=== PATIENT | male | born 1935 | race Caucasian/White ===

== ENCOUNTER 2017-02-27 23:17 | Observation (INO) | payer OTHER ==
[~2017-02-27] VITALS: Ht 162.6 cm; Wt 83.4 kg
[~2017-02-27 23:17] MED LIST: BTP80 PO; MOEX15TA PO; WARF-280 PO
[2017-02-28] VITALS (10 sets, daily range): BP systolic 102–121; BP diastolic 59–75; PULSE 62–76; TEMP 36.7–36.9; O2SAT 93–96; Ht 162.6 cm; Wt 83.4 kg
--- NOTE | 2017-02-28 00:07 | EMERGENCY ROOM VISIT NOTE ---
History Report prepared by Danny: Axel Liu Under the Supervision of: Dr. Purvi De Santiago D.O. First contact with patient: 23:33 Chief Complaint: TACHYCARDIA Stated Complaint: HEART RACING History of Present Illness The patient is an 81 year old male who presents to the Emergency Room with complaints of a rapid heart beat that began at roughly 2300 this evening, 1 hour prior to arrival. The patient states that he suddenly became cold and diaphoretic as well when his tachycardia began. The patient's also notes that he was not behaving normally and seemed as though he was becoming increasingly weak. He thought that his symptoms could be secondary to eating two "hot sausage" sandwiches for dinner at 1700. He denies experiencing any nausea. He does have a history of atrial fibrillation and currently has a bladder catheter placed due to a complete stone blockage. He is on Coumadin. Source of History: patient, spouse/significant other Onset: 1 hour [employer] Position: chest (Cardiac) Quality: other (Rapid Heart rate) Associated Symptoms: + chills, + diaphoresis, + weakness, No nausea Review of Systems See HPI for pertinent positives & negatives. A total of 10 systems reviewed and were otherwise negative. Past Medical & Surgical Medical Problems: (1) Atrial fibrillation (2) BPH (benign prostatic hypertrophy) (3) HTN (hypertension) (4) Lightheadedness (5) Subdural hemorrhage Family History Patient reports no known family medical history. Social History Smoking Status: Never Smoker Alcohol Use: occasionally Marital Status: Housing Status: lives with family Occupation Status: retired Current/Historical Medications Scheduled Lisinopril (Zestril), 5 MG PO BID Sotalol HCl (Sotalol HCl), 40 MG PO BID Warfarin Sodium (Warfarin Sodium), 2.5 MG PO 5XWK Warfarin Sodium (Warfarin Sodium), 1.25 MG PO 2XWK Allergies Coded Allergies: Phenytoin (Verified Allergy, Mild, ., 04/19/14) Sulfamethoxazole w/Trimethoprim (Verified Allergy, Mild, ., 04/19/14) Physical Exam Vital Signs Date Time Temp Pulse Resp B/P (MAP) Pulse Ox O2 Delivery O2 Flow Rate FiO2 02/28/17 02:06 79 23 96 02/28/17 02:01 126/71 02/28/17 01:36 80 20 94 02/28/17 01:31 111/60 02/28/17 01:06 83 20 90 02/28/17 01:01 115/62 02/28/17 00:52 86 17 90 02/28/17 00:31 130/62 02/28/17 00:22 88 91 02/28/17 00:17 91 14 94 02/28/17 00:01 143/81 02/27/17 23:51 93 Room Air 02/27/17 23:49 138/74 02/27/17 23:47 92 92 02/27/17 23:40 93 Room Air 02/27/17 23:40 90 02/27/17 23:37 139/73 02/27/17 23:28 37.2 92 19 145/75 92 Room Air Physical Exam HEENT: Head - normocephalic and atraumatic Pupils are equal, round, and reactive to light. Extraocular eye muscles are intact, and sclera are anicteric. Nose - moist nasal mucosa without discharge. Mouth - moist buccal mucosa. Oropharynx is nonerythematous and there is no tonsillar exudate or edema noted. Neck: Supple; no JVD, nuchal rigidity, cervical lymphadenopathy. Heart: Regular rate with Irregular rhythm. There is a normal S1 and S2 with no murmurs, clicks, or gallops appreciated. Lungs: Clear to auscultation bilaterally with no wheezes, rales, or rhonchi. Abdomen: Soft, nondistended, with good bowel sounds. There is a suprapubic catheter in place, no infection surrounding. There are no palpable pulsatile masses or hepatosplenomegaly. There is no guarding, rigidity, or rebound noted. Extremities: No evidence of cyanosis, clubbing, or edema. There are easily palpable peripheral pulses. Skin: Skin is hot to the touch and dry with good turgor. There is small vesicles noted in the LLQ of the abdomen. No significant surrounding erythema or warmth, no obvious cellulitis. Medical Decision & Procedures ER Provider Diagnostic Interpretation: Radiology results as stated below per my review: CHEST X-RAY PORTABLE: Chest X-ray shows borderline cardiomegaly, no pulmonary infiltrate or pleural effusion. Laboratory Results 02/27/17 23:56 Red Blood Count 4.32, Mean Corpuscular Volume 93.3, Mean Corpuscular Hemoglobin 31.9, Mean Corpuscular Hemoglobin Concent 34.2, Mean Platelet Volume 10.1, Neutrophils (%) (Auto) 82.5, Lymphocytes (%) (Auto) 7.4, Monocytes (%) (Auto) 9.2, Eosinophils (%) (Auto) 0.5, Basophils (%) (Auto) 0.1, Neutrophils # (Auto) 15.94, Lymphocytes # (Auto) 1.42, Monocytes # (Auto) 1.78, Eosinophils # (Auto) 0.09, Basophils # (Auto) 0.02 02/27/17 23:56 Test 02/27/17 23:45 02/27/17 23:56 02/28/17 00:10 Urine Color YELLOW Urine Appearance TURBID (CLEAR) Urine pH 5.5 (4.5-7.5) Urine Specific [place] 1.010 (1.000-1.030) Urine Protein NEG (NEG) Urine Glucose (UA) NEG (NEG) Urine Ketones NEG (NEG) Urine Occult Blood 2+ (NEG) Urine Nitrite POS (NEG) Urine Bilirubin NEG (NEG) Urine Urobilinogen NEG (NEG) Urine Leukocyte Esterase LARGE (NEG) Urine WBC (Auto) >30 /hpf (0-5) Urine RBC (Auto) 5-10 /hpf (0-4) Urine Hyaline Casts (Auto) 1-5 /lpf (0-5) Urine Epithelial Cells (Auto) 20-30 /lpf (0-5) Urine Bacteria (Auto) 4+ (NEG) Urine Yeast (Auto) (NONE PRSENT) White Blood Count 19.31 K/uL (4.8-10.8) Red Blood Count 4.32 M/uL (4.7-6.1) Hemoglobin 13.8 g/dL (14.0-18.0) Hematocrit 40.3 % (42-52) Mean Corpuscular Volume 93.3 fL (80-100) Mean Corpuscular Hemoglobin 31.9 pg (25-34) Mean Corpuscular Hemoglobin Concent 34.2 g/dl (32-36) Platelet Count 303 K/uL (130-400) Mean Platelet Volume 10.1 fL (7.4-10.4) Neutrophils (%) (Auto) 82.5 % Lymphocytes (%) (Auto) 7.4 % Monocytes (%) (Auto) 9.2 % Eosinophils (%) (Auto) 0.5 % Basophils (%) (Auto) 0.1 % Neutrophils # (Auto) 15.94 K/uL (1.4-6.5) Lymphocytes # (Auto) 1.42 K/uL (1.2-3.4) Monocytes # (Auto) 1.78 K/uL (0.11-0.59) Eosinophils # (Auto) 0.09 K/uL (0-0.5) Basophils # (Auto) 0.02 K/uL (0-0.2) RDW Standard Deviation 47.9 fL (36.4-46.3) RDW Coefficient of Variation 13.9 % (11.5-14.5) Immature Granulocyte % (Auto) 0.3 % Immature Granulocyte # (Auto) 0.06 K/uL (0.00-0.02) Prothrombin Time 22.7 SECONDS (9.0-12.0) Prothromb Time International Ratio 2.1 (0.9-1.1) Activated Partial Thromboplast Time 38.2 SECONDS (21.0-31.0) Partial Thromboplastin Ratio 1.5 Anion Gap 9.0 mmol/L (3-11) Est Creatinine Clear Calc Drug Dose 56.6 ml/min Estimated GFR () 81.4 Estimated GFR (Non- 70.3 BUN/Creatinine Ratio 12.6 (10-20) Calcium Level 8.4 mg/dl (8.5-10.1) Total Bilirubin 0.6 mg/dl (0.2-1) Aspartate Amino Transf (AST/SGOT) 20 U/L (15-37) Alanine Aminotransferase (ALT/SGPT) 23 U/L (12-78) Alkaline Phosphatase 70 U/L (45-117) Troponin I < 0.015 ng/ml (0-0.045) Total Protein 6.9 gm/dl (6.4-8.2) Albumin 3.1 gm/dl (3.4-5.0) Globulin 3.8 gm/dl (2.5-4.0) Albumin/Globulin Ratio 0.8 (0.9-2) Bedside Lactic Acid Venous 2.17 mmol/L (0.90-1.70) Laboratory results per my review. Medications Administered Medications (Trade) Dose Ordered Sig/Jhonatan Route Start Time Stop Time Status Last Admin Dose Admin Levofloxacin (Levaquin / D5W) 750 mg NOW STAT IV 02/28/17 00:54 02/28/17 00:55 DC 02/28/17 01:13 750 MG Procedure Medications Ordered: Levofloxacin ECG Indication: diaphoresis, tachycardia Rate (beats per minute): 88 Rhythm: normal sinus Findings: LBBB, PAC Comparison ECG Date: 02/16/2016 Change: LBBB is new from previous ED Course 2339: Past medical records reviewed. The patient was evaluated in room A11B. A complete history and physical exam was performed. A septic protocol was performed. A twelve-lead EKG was obtained as described above. Patient had a chest x-ray as described above. 0054: Ordered Levofloxacin 750 mg IV. The patient remains hemodynamically stable. 0156: I reevaluated the patient at this time, he is feeling better and is no longer diaphoretic. He is agreeable to an inpatient stay. 0215: I discussed the case with Dr. Soy Sorensen at this time. She will evaluate the patient for further treatment. Medical Decision The patient is an 81 year old male who presents to the Emergency Department for tachycardia and diaphoresis. Differential diagnosis includes; Sepsis, cardiac ischemia, UTI, and cardiac dysrhythmia. Laboratory Results were reviewed and show; white count of 19.3, mild anemia with a hemoglobin of 13.8, 82% neutrophils, lactic acid of 2.1, glucose of 135, LFTs and renal function are normal, INR of 2.1 Urinalysis was significantly infected, positive nitrites, large leukocyte esterase, >30 WBCs. The patient presented with an episode of diaphoresis, pallor and tachycardia. Upon presentation to the emergency department, there was a low-grade temp and the patient's skin was hot to touch. Urine from the suprapubic catheter with cloudy. Patient had moderate leukocytosis, an elevated lactic acid, and evidence of urinary tract infection. The patient has a history of Klebsiella pneumoniae and the blood. He was given IV Levaquin The patient was noted to have a new left bundle branch block in comparison to previous EKGs. A troponin was ordered and was negative. The patient had no complaints of chest discomfort. Consults Time Called: 0205 Consulting Physician: Dr. Soy Sorensen Returned Call: 0215 I discussed the case with Dr. Soy Canela Hospitalist at this time. She will evaluate the patient for further treatment. Impression Primary Impression: SIRS (systemic inflammatory response syndrome) Additional Impression: UTI (urinary tract infection) Scribe Attestation The scribe's documentation has been prepared under my direction and personally reviewed by me in its entirety. I confirm that the note above accurately reflects all work, treatment, procedures, and medical decision making performed by me. Departure Information Dispostion Being Evaluated By Hospitalist Referrals Nii Hirsch M.D. (PCP) Patient Instructions My [facility] Problem Qualifiers
[2017-02-28 00:30] LABS: URINE APPEARANCE TURBID (CLEAR); URINE BILIRUBIN NEG (NEG); URINE COLOR YELLOW; URINE EPITHELIAL CELL AUTO 20-30 /lpf (0-5); URINE NITRITE POS (NEG); URINE PH 5.5 (4.5-7.5); UROBILINOGEN NEG (NEG); ZZURINE CULT IF INDIC CATH YES
[2017-02-28 00:41] LABS: MANUAL MICROSCOPIC REQUIRED? NO; REVIEW REQ? YES
[2017-02-28 00:42] LABS: BASO % 0.1 %; BASO ABS # 0.02 K/uL (0-0.2); COMPLETE YES; EOS % 0.5 %; HEMATOCRIT 40.3 % (42-52); IG% 0.3 %; LYMPH % 7.4 %; LYMPH ABS # 1.42 K/uL (1.2-3.4); MEAN CELL VOLUME 93.3 fL (80-100); MEAN CORPUSCULAR HEMOGLOBIN 31.9 pg (25-34); MEAN CORPUSCULAR HGB CONC 34.2 g/dl (32-36); MEAN PLATELET VOLUME 10.1 fL (7.4-10.4); MONO % 9.2 %; NEUT % 82.5 %; PLATELET COUNT 303 K/uL (130-400); RED BLOOD COUNT 4.32 M/uL (4.7-6.1); WHITE BLOOD COUNT 19.31 K/uL (4.8-10.8)
[2017-02-28 00:51] LABS: INR 2.1 (0.9-1.1); PARTIAL THROMBOPLASTIN RATIO 1.5; PROTHROMBIN TIME (PATIENT) 22.7 SECONDS (9.0-12.0)
[2017-02-28] MEDS ORDERED: LEVAQUIN 750MG / 150ML D5W IV STA (00:54)
[2017-02-28 01:01] LABS: ALT/SGPT 23 U/L (12-78); AST/SGOT 20 U/L (15-37); BLOOD UREA NITROGEN 13 mg/dl (7-18); BUN/CREATININE RATIO 12.6 (10-20); CALCIUM 8.4 mg/dl (8.5-10.1); CARBON DIOXIDE 23 mmol/L (21-32); CHLORIDE 106 mmol/L (98-107); GLUCOSE 135 mg/dl (70-99); POTASSIUM 3.7 mmol/L (3.5-5.1); SODIUM 138 mmol/L (136-145)
[2017-02-28 01:03] LABS: ALB/GLOB RATIO 0.8 (0.9-2); ALKALINE PHOSPHATASE 70 U/L (45-117)
[2017-02-28] MEDS ORDERED: LISI-729 PO (01:16)
[2017-02-28] MEDS ORDERED: IV FLUIDS COMPLETED PRN (03:00)
[2017-02-28] MEDS ORDERED: POLYETHYLENE (MIRALAX) 17 GM PACK PO PRN (04:15)
[2017-02-28] MEDS ORDERED: ONDANSETRON INJ 2 MG/ML 2 ML VIAL IV PRN (04:15)
[2017-02-28] MEDS ORDERED: ACETAMINOPHEN 325 MG TAB PO PRN (04:15)
--- NOTE | 2017-02-28 04:48 | History and Physical ---
History & Physical Date & Time of Service: Feb 28, 2017 at 04:20 Chief Complaint: Lightheadedness Primary Care Physician: Nii Hirsch M.D. History of Present Illness Source: patient, clinic records, hospital records 81 yo M with h/o neurogenic bladder and suprapubic catheter presents to the ER after a spell of rapid heart beat at home while walking in the heat outside after dinner. He came into the house and developed chills and sweats and just didn't feel well. Weakness was also present and although he never lost consciousness, the patient's noted he wasn't looking well. He had some sausage sandwiches for dinner and thought this may be causing him trouble, however, he denies any heartburn, abdominal pain or chest pain. He denies any SOB. He is therapeutic on coumadin and takes sotalol for atrial fibrillation s/ p DCCV. He has a suprapubic bladder catheter in place and workup revealed presence of bacteria. However, the patient denies any pelvic pain or discomfort and has no dysuria, flank pain, urinary urgency or other concern for UTI. In the ER, an EKG revealed a new LBBB and trop was negative. He was given some IVF and Levaquin in the ER and reports that he has no further symptoms at this time and feels great. Past Medical/Surgical History Medical Problems: (1) Atrial fibrillation Permanent Comment: anticoagulated on coumadin Status: Chronic (2) BPH (benign prostatic hypertrophy) Status: Chronic (3) HTN (hypertension) Status: Chronic (4) Neurogenic bladder Status: Chronic (5) Subdural hemorrhage Status: Resolved Surgical Problems: (1) Chronic suprapubic catheter Status: Chronic Family History Patient reports no known family medical history. Social History Smoking Status: Former Smoker Smokeless Tobacco Use: Yes Alcohol Use: occasionally Drug Use: none Marital Status: Housing status: lives with significant other Occupational Status: retired Immunizations History of Influenza Vaccine: Unknown History of Tetanus Vaccine?: Unknown History of Pneumococcal: Yes Pneumococcal Date: Jul 23, 2016 History of Hepatitis B Vaccine: No Multi-Drug Resistant Organisms History of MDRO: No Allergies Coded Allergies: Phenytoin (Verified Allergy, Mild, ., 04/19/14) Sulfamethoxazole w/Trimethoprim (Verified Allergy, Mild, ., 04/19/14) Home Medications Scheduled Lisinopril (Zestril), 5 MG PO BID Sotalol HCl (Sotalol HCl), 40 MG PO BID Warfarin Sodium (Warfarin Sodium), 2.5 MG PO 5XWK Warfarin Sodium (Warfarin Sodium), 1.25 MG PO 2XWK Review of Systems At least ten systems were reviewed and negative except as indicated in HPI Physical Exam Vital Signs Date Time Temp Pulse Resp B/P (MAP) Pulse Ox O2 Delivery O2 Flow Rate FiO2 02/28/17 03:07 36.9 79 19 102/59 93 02/28/17 02:36 81 21 95 02/28/17 02:31 116/67 02/28/17 02:06 79 23 96 02/28/17 02:01 126/71 02/28/17 01:36 80 20 94 02/28/17 01:31 111/60 02/28/17 01:06 83 20 90 02/28/17 01:01 115/62 02/28/17 00:52 86 17 90 02/28/17 00:31 130/62 02/28/17 00:22 88 91 02/28/17 00:17 91 14 94 02/28/17 00:01 143/81 02/27/17 23:51 93 Room Air 02/27/17 23:49 138/74 02/27/17 23:47 92 92 02/27/17 23:40 93 Room Air 02/27/17 23:40 90 02/27/17 23:37 139/73 02/27/17 23:28 37.2 92 19 145/75 92 Room Air GEN: WNWD, in no acute distress, alert and appropriate HEENT: NC/AT, PERRL, normal sclerae, MMM CARDIO: reg rate, S1/2 heard without m/g/r LUNGS: CTA bilaterally, no crackles, rales or wheezes, good diaphragmatic excursion ABD: soft, non-tender, non-distended, no rebound or guarding, suprapubic catheter in place, no erythema around entry site and no drainage. EXTREMITY: RP and DP palpable 2+ bilat, no LE swelling or edema, extremities are warm and well-perfused NEURO: CN 2-12 grossly intact, sensation intact throughout MUSC: 5/5 strength throughout, no gross focal deficits SKIN: warm and dry Diagnostics Laboratory Results 02/27/17 23:56 Red Blood Count 4.32, Mean Corpuscular Volume 93.3, Mean Corpuscular Hemoglobin 31.9, Mean Corpuscular Hemoglobin Concent 34.2, Mean Platelet Volume 10.1, Neutrophils (%) (Auto) 82.5, Lymphocytes (%) (Auto) 7.4, Monocytes (%) (Auto) 9.2, Eosinophils (%) (Auto) 0.5, Basophils (%) (Auto) 0.1, Neutrophils # (Auto) 15.94, Lymphocytes # (Auto) 1.42, Monocytes # (Auto) 1.78, Eosinophils # (Auto) 0.09, Basophils # (Auto) 0.02 02/27/17 23:56 Test 02/27/17 23:45 02/27/17 23:56 02/28/17 00:10 02/28/17 05:52 Urine Color YELLOW Urine Appearance TURBID (CLEAR) Urine pH 5.5 (4.5-7.5) Urine Specific [place] 1.010 (1.000-1.030) Urine Protein NEG (NEG) Urine Glucose (UA) NEG (NEG) Urine Ketones NEG (NEG) Urine Occult Blood 2+ (NEG) Urine Nitrite POS (NEG) Urine Bilirubin NEG (NEG) Urine Urobilinogen NEG (NEG) Urine Leukocyte Esterase LARGE (NEG) Urine WBC (Auto) >30 /hpf (0-5) Urine RBC (Auto) 5-10 /hpf (0-4) Urine Hyaline Casts (Auto) 1-5 /lpf (0-5) Urine Epithelial Cells (Auto) 20-30 /lpf (0-5) Urine Bacteria (Auto) 4+ (NEG) Urine Yeast (Auto) (NONE PRSENT) White Blood Count 19.31 K/uL (4.8-10.8) Red Blood Count 4.32 M/uL (4.7-6.1) Hemoglobin 13.8 g/dL (14.0-18.0) Hematocrit 40.3 % (42-52) Mean Corpuscular Volume 93.3 fL (80-100) Mean Corpuscular Hemoglobin 31.9 pg (25-34) Mean Corpuscular Hemoglobin Concent 34.2 g/dl (32-36) Platelet Count 303 K/uL (130-400) Mean Platelet Volume 10.1 fL (7.4-10.4) Neutrophils (%) (Auto) 82.5 % Lymphocytes (%) (Auto) 7.4 % Monocytes (%) (Auto) 9.2 % Eosinophils (%) (Auto) 0.5 % Basophils (%) (Auto) 0.1 % Neutrophils # (Auto) 15.94 K/uL (1.4-6.5) Lymphocytes # (Auto) 1.42 K/uL (1.2-3.4) Monocytes # (Auto) 1.78 K/uL (0.11-0.59) Eosinophils # (Auto) 0.09 K/uL (0-0.5) Basophils # (Auto) 0.02 K/uL (0-0.2) RDW Standard Deviation 47.9 fL (36.4-46.3) RDW Coefficient of Variation 13.9 % (11.5-14.5) Immature Granulocyte % (Auto) 0.3 % Immature Granulocyte # (Auto) 0.06 K/uL (0.00-0.02) Activated Partial Thromboplast Time 38.2 SECONDS (21.0-31.0) Partial Thromboplastin Ratio 1.5 Anion Gap 9.0 mmol/L (3-11) Est Creatinine Clear Calc Drug Dose 56.6 ml/min Estimated GFR () 81.4 Estimated GFR (Non- 70.3 BUN/Creatinine Ratio 12.6 (10-20) Calcium Level 8.4 mg/dl (8.5-10.1) Total Bilirubin 0.6 mg/dl (0.2-1) Aspartate Amino Transf (AST/SGOT) 20 U/L (15-37) Alanine Aminotransferase (ALT/SGPT) 23 U/L (12-78) Alkaline Phosphatase 70 U/L (45-117) Total Protein 6.9 gm/dl (6.4-8.2) Albumin 3.1 gm/dl (3.4-5.0) Globulin 3.8 gm/dl (2.5-4.0) Albumin/Globulin Ratio 0.8 (0.9-2) Bedside Lactic Acid Venous 2.17 mmol/L (0.90-1.70) Creatine Kinase MB Ratio (0-3.0) Date/Time Source Procedure Growth Status 02/28/17 00:02 Blood Blood Culture Pending Received 02/27/17 23:45 Urine,Catheterized Urine Culture Pending Received Results Past 24 Hours Test 02/27/17 23:45 02/27/17 23:56 02/28/17 00:10 Range/Units Urine Color YELLOW Urine Appearance TURBID CLEAR Urine pH 5.5 4.5-7.5 Urine Specific [place] 1.010 1.000-1.030 Urine Protein NEG NEG Urine Glucose (UA) NEG NEG Urine Ketones NEG NEG Urine Occult Blood 2+ NEG Urine Nitrite POS NEG Urine Bilirubin NEG NEG Urine Urobilinogen NEG NEG Urine Leukocyte Esterase LARGE NEG Urine WBC (Auto) >30 0-5 /hpf Urine RBC (Auto) 5-10 0-4 /hpf Urine Hyaline Casts (Auto) 1-5 0-5 /lpf Urine Epithelial Cells (Auto) 20-30 0-5 /lpf Urine Bacteria (Auto) 4+ NEG Urine Yeast (Auto) NONE PRSENT White Blood Count 19.31 4.8-10.8 K/uL Red Blood Count 4.32 4.7-6.1 M/uL Hemoglobin 13.8 14.0-18.0 g/dL Hematocrit 40.3 42-52 % Mean Corpuscular Volume 93.3 80-100 fL Mean Corpuscular Hemoglobin 31.9 25-34 pg Mean Corpuscular Hemoglobin Concent 34.2 32-36 g/dl Platelet Count 303 130-400 K/uL Mean Platelet Volume 10.1 7.4-10.4 fL Neutrophils (%) (Auto) 82.5 % Lymphocytes (%) (Auto) 7.4 % Monocytes (%) (Auto) 9.2 % Eosinophils (%) (Auto) 0.5 % Basophils (%) (Auto) 0.1 % Neutrophils # (Auto) 15.94 1.4-6.5 K/uL Lymphocytes # (Auto) 1.42 1.2-3.4 K/uL Monocytes # (Auto) 1.78 0.11-0.59 K/uL Eosinophils # (Auto) 0.09 0-0.5 K/uL Basophils # (Auto) 0.02 0-0.2 K/uL RDW Standard Deviation 47.9 36.4-46.3 fL RDW Coefficient of Variation 13.9 11.5-14.5 % Immature Granulocyte % (Auto) 0.3 % Immature Granulocyte # (Auto) 0.06 0.00-0.02 K/uL Prothrombin Time 22.7 9.0-12.0 SECONDS Prothromb Time International Ratio 2.1 0.9-1.1 Activated Partial Thromboplast Time 38.2 21.0-31.0 SECONDS Partial Thromboplastin Ratio 1.5 Sodium Level 138 136-145 mmol/L Potassium Level 3.7 3.5-5.1 mmol/L Chloride Level 106 98-107 mmol/L Carbon Dioxide Level 23 21-32 mmol/L Anion Gap 9.0 3-11 mmol/L Blood Urea Nitrogen 13 7-18 mg/dl Creatinine 1.00 0.60-1.40 mg/dl Est Creatinine Clear Calc Drug Dose 56.6 ml/min Estimated GFR () 81.4 Estimated GFR (Non- 70.3 BUN/Creatinine Ratio 12.6 10-20 Random Glucose 135 70-99 mg/dl Calcium Level 8.4 8.5-10.1 mg/dl Total Bilirubin 0.6 0.2-1 mg/dl Aspartate Amino Transf (AST/SGOT) 20 15-37 U/L Alanine Aminotransferase (ALT/SGPT) 23 12-78 U/L Alkaline Phosphatase 70 45-117 U/L Troponin I < 0.015 0-0.045 ng/ml Total Protein 6.9 6.4-8.2 gm/dl Albumin 3.1 3.4-5.0 gm/dl Globulin 3.8 2.5-4.0 gm/dl Albumin/Globulin Ratio 0.8 0.9-2 Bedside Lactic Acid Venous 2.17 0.90-1.70 mmol/L Microbiology Results 02/28/17 Blood Culture, Received Pending 02/27/17 Urine Culture, Received Pending Diagnostic Radiology Negative for acute intrathoracic process(wet read) EKG new LBBB, sinus rhythm 88 Impression Assessment and Plan 81 yo M with acute onset of symptoms at home found to have compicated UTI and a new LBBB conduction abnormality on EKG 1. Lightheadedness-without preceding symptoms of fevers, chills or that of UTI symptoms. Possibly 2/2 conduction abnormality vs UTI. Treating empirically with IV Levaquin; symptoms have completely cleared since admission. 2. LBBB-new onset, neg trop; will trend. No chest pain. TTE ordered for am. Cardiology consulted. 3. HTN-controlled, cont home meds. 4. Atrial fibrillation-currently in sinus rhythm. Therapeutic on coumadin and takes Sotalol. 5. UTI-cover empirically with Levaquin as above. 6. Leukocytosis-poss 2/2 UTI DvT proph: coumadin Full Code Dispo-telemetry DO [facility] Hospitalist Level of Care Telemetry Resuscitation Status FULL RESUSCITATION VTE Prophylaxis VTE Risk Assessment Done? Y/N: Yes Risk Level: Moderate Given or contraindicated: Warfarin (Coumadin)
[2017-02-28 06:37] LABS: INR 2.1 (0.9-1.1); PROTHROMBIN TIME (PATIENT) 23.1 SECONDS (9.0-12.0)
--- NOTE | 2017-02-28 06:53 | DIAGNOSTIC IMAGING REPORT ---
CHEST ONE VIEW PORTABLE CLINICAL HISTORY: Sepsis dyspnea COMPARISON STUDY: 02/27/2015 FINDINGS: The bones soft tissues and hemidiaphragms are normal. The cardiomediastinal silhouette is normal. The lungs are clear. The pulmonary vasculature is normal. IMPRESSION: Negative chest. Electronically signed by: Des Delgado M.D. 02/28/2017 6:51 AM Dictated Date/Time: 02/28/2017 6:51 AM
[2017-02-28 06:54] LABS: CKMB/CK RATIO 1.4 (0-3.0)
[2017-02-28] MEDS: SOTALOL HCL 80 MG TAB PO SCH ×2 (08:09→20:39)
[2017-02-28] MEDS: LISINOPRIL 5 MG TAB PO SCH ×2 (08:10→20:39)
[2017-02-28] MEDS ORDERED: PERFLUTREN LIPID MICROSPHERE (DEFINITY) IV ONE (08:54)
--- NOTE | 2017-02-28 11:17 | Cardiology Consultation ---
Cardiology Consultation Date of Consultation: Feb 28, 2017 Requesting Physician: Soy Attending Customer Service Representative Teller: Hima (Des Rowley PA-C) History of Present Illness History of Present Illness: MR. Allen is a pleasant 81 year old male who is being seen at the request of Dr. Olivier. Reason for consultation is a new left bundle branch block. Mr. Allen describes being is his usual state of health until last evening. He describes feeling well until eating two hot sausage sandwiches prepared by his for supper. After dinner he tinkered around in the garden and helped his boy. He came in from the heat, shortly thereafter developing rigors, feeling clammy, diaphoretic, and weak. After a period of time he eventually agreed to further evaluation with his son and bringing him to the [facility] ER late last evening. In the ER he was evaluated by Dr. De Santiago. He was found to have a low grade temperature, moderate leukocytosis, elevated lactic acid, evidence of a urinary tract infection. The patient received IV fluids and 750 mg of IV Levaquin with significant improvement, resolution, of his presenting symptoms in about one hour. EKG revealed sinus rhythm at 88 bpm with atrial and ventricular ectopy or fusion complexes and a left bundle branch block. Mr. Allen has been free of his presenting symptoms since admission. He denies chest pain, chest discomfort, chest tightness, palpitations, or shortness of breath. He denies orthopnea, PND, or peripheral edema. He denies near syncope or syncope. No epistaxis, hemoptysis, melena, or hematochezia. (Des Rowley PA-C) Past Medical/Surgical History Problem List: Past Medical and Surgical History: Neurogenic bladder, suprapubic catheter. Followed by Dr. Asencio Benign prostatic hypertrophy Multiple prior cystoscopies Renal calculi Paroxysmal atrial fibrillation/flutter status post cardioversion, initiation of Sotalol in January 2014. Chronic Coumadin anticoagulation History of subdural hemorrhage status post drainage, 2000 Hypertension Chronic tobacco use Family History: Not notable for CAD. Father with lung cancer. Social History: Reformed cigarette smoker, remote past. Chewed cigars. Currently chews one can of snuff per week. Alcohol: 2-3 drinks 2-3 nights per week. No illegal drug use. , lives with his . 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 (Des Rowley PA-C) Family History Patient reports no known family medical history. (Des Rowley PA-C) Patient reports no known family medical history. (Sánchez Rabago D.O.) Social History Smoking Status: Former Smoker Smokeless Tobacco Use: Yes Alcohol Use: occasionally Drug Use: none Marital Status: Housing Status: lives with significant other Occupation: retired (Des Rowley PA-C) Review Of Systems Complete review of systems is as stated above, negative, or noncontributory. (Des Rowley PA-C) Allergies Coded Allergies: Phenytoin (Verified Allergy, Mild, ., 04/19/14) Sulfamethoxazole w/Trimethoprim (Verified Allergy, Mild, ., 04/19/14) Medications Reported Home Medications Medications Dose Route/Sig Max Daily Dose Days Date Category Dose Instructions Zestril (Lisinopril) 5 Mg Tab 5 Mg PO BID 02/28/17 Reported Sotalol HCl 80 Mg Tab 40 Mg PO BID 02/27/15 Reported TAKE 1/2 TABLET TWICE DAILY. Warfarin Sodium 2.5 Mg Tab 1.25 Mg PO 2XWK 02/11/14 Reported TAKE HALF A TABLET (1.25 MG) EVERY SATURDAY/SATURDAY. Warfarin Sodium 2.5 Mg Tab 2.5 Mg PO 5XWK 02/11/14 Reported TAKE 2.5 MG EVERY SATURDAY/SATURDAY/SATURDAY/SATURDAY/ SATURDAY. (Des Rowley PA-C) Physical Exam Vital Signs (Last 8hrs): Last 8 Hrs Date Time Temp Pulse Resp B/P (MAP) Pulse Ox O2 Delivery O2 Flow Rate FiO2 02/28/17 10:36 62 96 02/28/17 08:00 96 Room Air 02/28/17 07:53 36.7 69 18 116/75 (89) 96 Room Air 02/28/17 04:49 36.8 76 18 116/74 93 Room Air 02/28/17 04:00 36.9 19 102/59 (73) 93 02/28/17 03:07 36.9 79 19 102/59 93 General Appearance: Alert and Oriented x3. NAD. Head: Normocephalic Atraumatic. Eyes: PER, EOMI, conjunctiva and sclera clear Neck: Supple. No carotid bruits. No JVD. No HJD. Respiratory: Breath sounds clear to auscultation bilaterally. No w/r/r. Cardiovascular: Irregular with occasional ectopic beats. Soft apical systolic murmur. No rub. No gallop. PMI is nondisplaced. Abdomen: Suprapubic catheter. +BS. Soft. Nontender. Extremities: No edema, no clubbing or cyanosis. Distal pulses 2/4 bilaterally. Neuro: No focal deficits. Psychiatric: Normal affect. (Des Rowley, OSCAR) Data Last 24 Hours Test 02/27/17 23:45 02/27/17 23:56 02/28/17 00:10 02/28/17 05:52 Urine Color YELLOW Urine Appearance TURBID Urine pH 5.5 Urine Specific [place] 1.010 Urine Protein NEG Urine Glucose (UA) NEG Urine Ketones NEG Urine Occult Blood 2+ Urine Nitrite POS Urine Bilirubin NEG Urine Urobilinogen NEG Urine Leukocyte Esterase LARGE Urine WBC (Auto) >30 /hpf Urine RBC (Auto) 5-10 /hpf Urine Hyaline Casts (Auto) 1-5 /lpf Urine Epithelial Cells (Auto) 20-30 /lpf Urine Bacteria (Auto) 4+ Urine Yeast (Auto) White Blood Count 19.31 K/uL Red Blood Count 4.32 M/uL Hemoglobin 13.8 g/dL Hematocrit 40.3 % Mean Corpuscular Volume 93.3 fL Mean Corpuscular Hemoglobin 31.9 pg Mean Corpuscular Hemoglobin Concent 34.2 g/dl Platelet Count 303 K/uL Mean Platelet Volume 10.1 fL Neutrophils (%) (Auto) 82.5 % Lymphocytes (%) (Auto) 7.4 % Monocytes (%) (Auto) 9.2 % Eosinophils (%) (Auto) 0.5 % Basophils (%) (Auto) 0.1 % Neutrophils # (Auto) 15.94 K/uL Lymphocytes # (Auto) 1.42 K/uL Monocytes # (Auto) 1.78 K/uL Eosinophils # (Auto) 0.09 K/uL Basophils # (Auto) 0.02 K/uL RDW Standard Deviation 47.9 fL RDW Coefficient of Variation 13.9 % Immature Granulocyte % (Auto) 0.3 % Immature Granulocyte # (Auto) 0.06 K/uL Prothrombin Time 22.7 SECONDS 23.1 SECONDS Prothromb Time International Ratio 2.1 2.1 Activated Partial Thromboplast Time 38.2 SECONDS Partial Thromboplastin Ratio 1.5 Sodium Level 138 mmol/L Potassium Level 3.7 mmol/L Chloride Level 106 mmol/L Carbon Dioxide Level 23 mmol/L Anion Gap 9.0 mmol/L Blood Urea Nitrogen 13 mg/dl Creatinine 1.00 mg/dl Est Creatinine Clear Calc Drug Dose 56.6 ml/min Estimated GFR () 81.4 Estimated GFR (Non- 70.3 BUN/Creatinine Ratio 12.6 Random Glucose 135 mg/dl Calcium Level 8.4 mg/dl Total Bilirubin 0.6 mg/dl Aspartate Amino Transf (AST/SGOT) 20 U/L Alanine Aminotransferase (ALT/SGPT) 23 U/L Alkaline Phosphatase 70 U/L Troponin I < 0.015 ng/ml < 0.015 ng/ml Total Protein 6.9 gm/dl Albumin 3.1 gm/dl Globulin 3.8 gm/dl Albumin/Globulin Ratio 0.8 Bedside Lactic Acid Venous 2.17 mmol/L Total Creatine Kinase 86 U/L Creatine Kinase MB 1.2 ng/ml Creatine Kinase MB Ratio 1.4 Admission CXR: Negative chest, as per Dr. Sandy M.D. Admission EKG: See above. EKG this morning reveals sinus rhythm at 73 bpm with low voltage QRS, a first degree AV block, and premature atrial complexes in a pattern of bigeminy. QTc: 436 ms. Telemetry reviewed: TTE: Pending. (Des Rowley PA-C) Assessment & Plan 81 year old male admitted with what appears to be a complicated urinary tract infection and associated intravascular volume depletion. Cardiology consultation requested secondary to an intermittent left bundle branch block on the admission EKG. ? Accelerated idioventricular rhythm. He is asymptomatic in regards to angina symptoms. Cardiac enzymes are negative x 2. There are no historical or examination findings of congestive heart failure. RECOMMENDATIONS: Discontinue Levaquin; avoid the concurrent use of agents with the potential to prolong QT intervals given the chronic use of Sotalol Resting echocardiography Serial cardiac enzymes Chronic Coumadin anticoagulation Outpatient ambulatory EKG and Lexiscan nuclear stress testing Further recommendations pending the above, evaluation by Dr. Rabago, and his ongoing hospitalization. (Des Rowley PA-C) CARDIOLOGY ATTENDING ADDENDUM: The patient was seen and personally examined. Agree with Des Rowley PA-C's findings and plans as documented above with additions as noted below. Subjective patient states that he presented to the hospital due to concerns of fevers chills. Per description of his spouse he had rigors at home. He has had since received a single dose of levofloxacin and is feeling much improved. He has a chronic suprapubic catheter due to neurogenic bladder. From a cardiac perspective he has a history of past atrial fibrillation for general cardioversion and is on low-dose sotalol therapy with dose limited by baseline bradycardia. Exam: Regular rhythm, no murmurs, no edema Data: Telemetry and EKG reviewed, suspect he has intermittent left bundle branch block , ectopy. He remains in sinus rhythm. Echocardiogram revealed normal left ventricle systolic function. Right ventricular and right atrial chamber enlargement are noted. The right ventricular systolic function appears grossly normal. Compared to his prior echocardiogram from 2016, it appears that there is been interval increase in the right ventricular diameter, the right ventricular enlargement was also noted on his last report. Impression: Complicated UTI History of PAF Sotalol therapy Anticoagulation with Coumadin Intermittent left bundle branch block and PVCs. Plan: The patient notes marketed symptomatic improvement since receiving a single dose of IV antibiotic therapy. I'm concerned regarding therapy with both his chronic sotalol as well as levofloxacin as these agents can be added if in terms of prolonging the corrected QT interval. I therefore have discontinued the levofloxacin and have initiated Rocephin in its place. Await urine cultures and will alter antibiotics as necessary. Case was discussed in person with Dr. Campo. (Sánchez Rabago D.O.)
[2017-02-28 12:54] LABS: CKMB/CK RATIO 1.7 (0-3.0)
--- NOTE | 2017-02-28 13:01 | ECHOCARDIOGRAM REPORT ---
*NOTICE TO RECEIVING CONSTITUTION PARTY AGENCY This information is strictly Confidential and protected under [place] law. [place] law prohibits you from making any further disclosure of this information unless further disclosure is expressly permitted by the written consent of the person to whom it pertains or is authorized by law. A general authorization for the release of medical or other information is not sufficient for this purpose. Hospital accepts no responsibility if the information is made available to any other person, INCLUDING THE PATIENT. Interpretation Summary * Name: FLACA KING Study Date: 02/28/2017 07:55 AM BP: 116/74 mmHg * Patient Location: [facility]\S\N287\S\1 HR: 72 * : 1935 (M/d/yyyy) Gender: Male Height: 63 in * Age: 81 yrs Ethnicity: CA Weight: 188 lb * Ordering Physician: Reva Olivier * Referring Physician: Anmol Jeter * Performed By: Sweta Arevalo RDCS * * Reason For Study: Atrial fibrillation * BSA: 1.9 m2 * -- Conclusions -- * Sinus rhythm was present at the time of the echocardiogram study. * The left ventricular cavity is small. * The left ventricular wall motion is normal. * The LV Ejection Fraction = 60-65%. * The right ventricle is moderately dilated. * The right ventricular systolic function is normal as assessed by tricuspid annular plane systolic excursion (TAPSE) (normal >1.5 cm). * The right atrium is moderately dilated. * Significant tricuspid regurgitation is absent. * Doppler findings do not suggest pulmonary hypertension. Procedure Details * A complete two-dimensional transthoracic echocardiogram was performed (2D, M-mode, Doppler and color flow Doppler). * A contrast injection of Definity was performed to improve assessment of LV function. * Contrast was injected into an intravenous site in the right arm. * One vial of Definity ultrasound contrast was diluted in normal saline to a total volume of 10 ml. A total of '2' ml of solution was administered during imaging. * Lot # [id number] of Definity utilized for procedure. * Expiration date APR 05. * The attending nurse who injected the contrast agent was Starr Lyon RN. Left Ventricle * The left ventricular cavity is small. * There is normal left ventricular wall thickness. * Left ventricular systolic function is normal. * Ejection Fraction = 60-65%. * The left ventricular wall motion is normal. Right Ventricle * The right ventricle is moderately dilated. * The right ventricular systolic function is normal as assessed by tricuspid annular plane systolic excursion (TAPSE) (normal >1.5 cm). Atria * The left atrial size is normal. * The right atrium is moderately dilated. * There is no evidence of atrial septal defect, but resolution does not allow assessment for a patent foramen ovale. Mitral Valve * The mitral valve is normal. * There is no mitral valve stenosis. * Significant mitral regurgitation is absent. Tricuspid Valve * The tricuspid valve is normal. * There is no tricuspid stenosis. * Significant tricuspid regurgitation is absent. * Doppler findings do not suggest pulmonary hypertension. Aortic Valve * The aortic valve is trileaflet. * Aortic valve sclerosis mild, without significant aortic valvular stenosis. * Aortic stenosis is absent. * There is no significant aortic regurgitation. Pulmonic Valve * The pulmonary valve is not well seen, but the Doppler examination is normal without significant regurgitation or stenosis. Great Vessels * The aortic root and proximal ascending aorta are normal sized. Pericardium/Pleural * There is no pericardial effusion. Great Vessels * Normal inferior vena cava diameter and respiratory variation suggests normal central venous pressure. * Normal inferior vena cava size and collapsability with sniff indicates a normal right atrial pressure of 3 mmHg Left Ventricular Diastolic Function * Grade I diastolic dysfunction, (abnormal relaxation pattern). MMode 2D Measurements and Calculations IVSd 1.0 cm LVIDd 3.5 cm LVIDs 2.2 cm LVPWd 0.89 cm IVS/LVPW 1.1 FS 36.2 % EDV(Teich) 49.8 ml ESV(Teich) 16.4 ml EF(Teich) 67.0 % EDV(cubed) 41.8 ml ESV(cubed) 10.8 ml EF(cubed) 74.1 % LV mass(C)d 94.7 grams LV mass(C)dI 50.3 grams/m\S\2 CO(Teich) 2.4 l/min CI(Teich) 1.3 l/min/m\S\2 SV(Teich) 33.4 ml SI(Teich) 17.7 ml/m\S\2 CO(cubed) 2.2 l/min CI(cubed) 1.2 l/min/m\S\2 SV(cubed) 30.9 ml SI(cubed) 16.4 ml/m\S\2 Ao root diam 3.0 cm Ao root area 7.1 cm\S\2 ACS 1.7 cm LA dimension 3.1 cm asc Aorta Diam 3.4 cm LA/Ao 1.0 LVOT diam 2.0 cm LVOT area 3.0 cm\S\2 LVAd ap4 24.1 cm\S\2 LVLd ap4 7.3 cm EDV(MOD-sp4) 65.0 ml LVAs ap4 11.6 cm\S\2 LVLs ap4 5.6 cm ESV(MOD-sp4) 21.0 ml EF(MOD-sp4) 67.7 % LVAd ap2 20.4 cm\S\2 LVLd ap2 6.1 cm EDV(MOD-sp2) 56.0 ml LVAs ap2 10.7 cm\S\2 LVLs ap2 5.3 cm ESV(MOD-sp2) 18.0 ml EF(MOD-sp2) 67.9 % CO(MOD-sp4) 3.2 l/min CI(MOD-sp4) 1.7 l/min/m\S\2 SV(MOD-sp4) 44.0 ml SI(MOD-sp4) 23.4 ml/m\S\2 CO(MOD-sp2) 2.7 l/min CI(MOD-sp2) 1.5 l/min/m\S\2 SV(MOD-sp2) 38.0 ml SI(MOD-sp2) 20.2 ml/m\S\2 Doppler Measurements and Calculations MV E max yeyo 67.1 cm/sec MV A max yeyo 101.7 cm/sec MV E/A 0.66 MV dec time 0.24 sec Ao V2 max 119.9 cm/sec Ao max PG 5.7 mmHg Ao max PG (full) 0.64 mmHg VERONICA(V,A) 2.8 cm\S\2 VERONICA(V,D) 2.8 cm\S\2 LV V1 max PG 5.1 mmHg LV V1 max 113.0 cm/sec PA V2 max 84.2 cm/sec PA max PG 2.8 mmHg PA acc slope 640.8 cm/sec\S\2 PA acc time 0.10 sec TR max yeyo 213.9 cm/sec PA pr(Accel) 34.6 mmHg
[2017-02-28] MEDS ORDERED: WARFARIN SOD 2.5 MG TAB PO SCH (16:00)
[2017-02-28] MEDS: CEFTRIAXONE SOD INJ 1 GM in DEXTROSE 5% ADD-VANTAGE 50ML 50 ML IV SCH (16:15)
--- NOTE | 2017-02-28 17:43 | Progress Note ---
Medicine Progress Note Date & Time of Visit: Feb 28, 2017 at 17:36. Subjective Pt was seen and examined Sitting in bed very comfortable with no distress Family member at bedside Pt said that he feels fine denies any chest pain, palpitation, dizziness and SOB Objective Last 8 Hrs Date Time Temp Pulse Resp B/P (MAP) Pulse Ox O2 Delivery O2 Flow Rate FiO2 02/28/17 16:04 36.7 64 18 113/72 (86) 95 Room Air 02/28/17 16:00 Room Air 02/28/17 12:00 96 Room Air 02/28/17 11:19 36.8 67 18 118/74 (89) 96 Room Air 02/28/17 10:36 62 96 Physical Exam: General- No acute distress Head- atraumatic Eyes- PERRL, EOMI ENT- oropharynx clear Neck- supple, no JVD Lungs- clear to auscultation and percussion Heart- irregular rhythm; +systolic murmur Abdomen- normal bowel sounds, soft, nontender Extremities- no calf tenderness Neuro- alert, oriented x 3; PERRL, EOMI; no facial palsy Skin- warm & dry Laboratory Results: Last 24 Hours Test 02/27/17 23:45 02/27/17 23:56 02/28/17 00:10 02/28/17 05:52 Urine Color YELLOW Urine Appearance TURBID Urine pH 5.5 Urine Specific [place] 1.010 Urine Protein NEG Urine Glucose (UA) NEG Urine Ketones NEG Urine Occult Blood 2+ Urine Nitrite POS Urine Bilirubin NEG Urine Urobilinogen NEG Urine Leukocyte Esterase LARGE Urine WBC (Auto) >30 /hpf Urine RBC (Auto) 5-10 /hpf Urine Hyaline Casts (Auto) 1-5 /lpf Urine Epithelial Cells (Auto) 20-30 /lpf Urine Bacteria (Auto) 4+ Urine Yeast (Auto) White Blood Count 19.31 K/uL Red Blood Count 4.32 M/uL Hemoglobin 13.8 g/dL Hematocrit 40.3 % Mean Corpuscular Volume 93.3 fL Mean Corpuscular Hemoglobin 31.9 pg Mean Corpuscular Hemoglobin Concent 34.2 g/dl Platelet Count 303 K/uL Mean Platelet Volume 10.1 fL Neutrophils (%) (Auto) 82.5 % Lymphocytes (%) (Auto) 7.4 % Monocytes (%) (Auto) 9.2 % Eosinophils (%) (Auto) 0.5 % Basophils (%) (Auto) 0.1 % Neutrophils # (Auto) 15.94 K/uL Lymphocytes # (Auto) 1.42 K/uL Monocytes # (Auto) 1.78 K/uL Eosinophils # (Auto) 0.09 K/uL Basophils # (Auto) 0.02 K/uL RDW Standard Deviation 47.9 fL RDW Coefficient of Variation 13.9 % Immature Granulocyte % (Auto) 0.3 % Immature Granulocyte # (Auto) 0.06 K/uL Prothrombin Time 22.7 SECONDS 23.1 SECONDS Prothromb Time International Ratio 2.1 2.1 Activated Partial Thromboplast Time 38.2 SECONDS Partial Thromboplastin Ratio 1.5 Sodium Level 138 mmol/L Potassium Level 3.7 mmol/L Chloride Level 106 mmol/L Carbon Dioxide Level 23 mmol/L Anion Gap 9.0 mmol/L Blood Urea Nitrogen 13 mg/dl Creatinine 1.00 mg/dl Est Creatinine Clear Calc Drug Dose 56.6 ml/min Estimated GFR () 81.4 Estimated GFR (Non- 70.3 BUN/Creatinine Ratio 12.6 Random Glucose 135 mg/dl Calcium Level 8.4 mg/dl Total Bilirubin 0.6 mg/dl Aspartate Amino Transf (AST/SGOT) 20 U/L Alanine Aminotransferase (ALT/SGPT) 23 U/L Alkaline Phosphatase 70 U/L Troponin I < 0.015 ng/ml < 0.015 ng/ml Total Protein 6.9 gm/dl Albumin 3.1 gm/dl Globulin 3.8 gm/dl Albumin/Globulin Ratio 0.8 Bedside Lactic Acid Venous 2.17 mmol/L Total Creatine Kinase 86 U/L Creatine Kinase MB 1.2 ng/ml Creatine Kinase MB Ratio 1.4 Test 02/28/17 12:07 Total Creatine Kinase 88 U/L Creatine Kinase MB 1.5 ng/ml Creatine Kinase MB Ratio 1.7 Troponin I < 0.015 ng/ml Date/Time Source Procedure Growth Status 02/28/17 00:02 Blood Blood Culture Pending Received 02/27/17 23:45 Urine,Catheterized Urine Culture Pending Received Assessment & Plan Lightheadedness/Weakness Possible related to UTI Received Levaquin in the ER cardiology recommended to change the Levaquin to avoid prolong QT intervals given due to Sotalol Clinically improved significantly LBBB Asymptomatic All 3 sets CM negative Cardiology on board Continue anticoagulant Sinus rhythm was present at the time of the echocardiogram study. * The left ventricular cavity is small. * The left ventricular wall motion is normal. * Ejection Fraction = 60-65%. * The right ventricle is moderately dilated. * The right ventricular systolic function is normal as assessed by tricuspid annular plane systolic excursion (TAPSE) (normal >1.5 cm). * The right atrium is moderately dilated. * Significant tricuspid regurgitation is absent. * Doppler findings do not suggest pulmonary hypertension. HTN Continue home med Stable Atrial fibrillation rate is controlled continue coumadin and Sotalol. UTI urine cx pending Abx changed to rocephin DVT px on coumadin INR therapeutic CODE STATUS Full Code Consultants: Cardio Current Inpatient Medications: Current Inpatient Medications Medications (Trade) Dose Ordered Sig/Jhonatan Route Start Time Stop Time Status Last Admin Dose Admin Miscellaneous (Iv Fluids Completed) 1 ea PRN PRN N/A 02/28/17 03:00 02/28/18 02:59 Acetaminophen (Tylenol Tab) 650 mg Q4H PRN PO 02/28/17 04:15 03/30/17 04:14 Polyethylene (Miralax Powder Packet) 17 gm DAILY PRN PO 02/28/17 04:15 03/30/17 04:14 Lisinopril (Zestril Tab) 5 mg BID PO 02/28/17 09:00 03/30/17 08:59 02/28/17 08:10 5 MG Sotalol HCl (Betapace Tab) 40 mg BID PO 02/28/17 09:00 03/30/17 08:59 02/28/17 08:09 40 MG Warfarin Sodium (Coumadin Tab) 1.25 mg MoFr@1600 PO 03/01/17 16:00 03/31/17 15:59 Warfarin Sodium (Coumadin Tab) 2.5 mg SuTuWeThSa@1600 PO 02/28/17 16:00 03/30/17 15:59 02/28/17 16:12 2.5 MG Ceftriaxone Sodium 1 gm/ Dextrose 50 ml @ 100 mls/hr Q24H IV 02/28/17 16:00 03/10/17 15:59 02/28/17 16:15 100 MLS/HR
[2017-03-01] VITALS (9 sets, daily range): BP systolic 108–113; BP diastolic 60–69; PULSE 58–71; TEMP 36.4–36.8; O2SAT 91–96
[2017-03-01] MEDS ORDERED: LEVOFLOXACIN / D5W 750 MG in PREMIXED IN D5W 150 ML IV SCH (01:00)
[2017-03-01 05:43] LABS: HEMATOCRIT 40.5 % (42-52); MEAN CELL VOLUME 94.2 fL (80-100); MEAN CORPUSCULAR HEMOGLOBIN 32.8 pg (25-34); MEAN CORPUSCULAR HGB CONC 34.8 g/dl (32-36); MEAN PLATELET VOLUME 9.6 fL (7.4-10.4); PLATELET COUNT 253 K/uL (130-400); WHITE BLOOD COUNT 10.46 K/uL (4.8-10.8)
[2017-03-01 05:48] LABS: INR 1.8 (0.9-1.1); PROTHROMBIN TIME (PATIENT) 19.9 SECONDS (9.0-12.0)
[2017-03-01 06:11] LABS: BUN/CREATININE RATIO 15.9 (10-20); CALCIUM 8.5 mg/dl (8.5-10.1); POTASSIUM 4.2 mmol/L (3.5-5.1)
[2017-03-01] MEDS: SOTALOL HCL 80 MG TAB PO SCH ×2 (07:55→20:43)
[2017-03-01] MEDS: LISINOPRIL 5 MG TAB PO SCH ×2 (07:55→20:43)
--- NOTE | 2017-03-01 11:51 | Cardiology Follow-Up ---
Subjective General Date of Service: Mar 01, 2017. Chief Complaint: follow-up PAF, intermittent left bundle branch block Pt evaluation today including: conversation w/ patient, physical exam History of Present Illness The patient is a 81 year old male seen in cardiology follow-up. Patient feels improved. He denies any subjective fevers or chills. Urine culture has yielded gram-negative bacilli, identification and sensitivity data is still pending. Telemetry reveals stable sinus rhythm with intermittent left bundle branch block. EKG this morning reveals stable sinus rhythm with stable corrected QT interval 420 ms. Allergies Coded Allergies: Phenytoin (Verified Allergy, Mild, ., 04/19/14) Sulfamethoxazole w/Trimethoprim (Verified Allergy, Mild, ., 04/19/14) Social History Smoking Status: Former Smoker Hx Tobacco Use In Past Year?: No Hx Alcohol Use - Type And Amou: Yes (BEER SOCIALLY) Hx Substance Use - Type And Am: No Problem List Medical Problems: (1) SIRS (systemic inflammatory response syndrome) Status: Acute (2) UTI (urinary tract infection) Status: Acute Physical Exam Vital Signs Last Vital Signs Documentation Date Time Temp Pulse Resp B/P (MAP) Pulse Ox O2 Delivery O2 Flow Rate FiO2 03/01/17 11:30 36.6 58 18 110/68 (82) 96 03/01/17 08:00 Room Air Physical Exam Constitutional: Level of Distress: NAD Neck: supple Lungs: Auscultation: no wheezing, no rales/crackles, no rhonchi Cardiovascular: Heart Auscultation: RRR, no murmurs, no rubs Abdomen: Bowel Sounds: normal Inspection & Palpation: non-distended Musculoskeletal: normal Extremities: no edema Neurologic: Gait & Station: pertinent finding (no focal deficits) Additional Comments: Genitourinary: Catheter with drainage of clear yellow urine Assessment and Plan Assessment and Plan Impression: 81-year-old male 1. Paroxysmal atrial fibrillation, for which patient is on chronic low dose sotalol therapy and Coumadin 2. Admitted with sepsis syndrome, lactic acidosis, suspected urinary tract infection, gram-negative bacilli in urine culture, history of chronic suprapubic catheter due to neurogenic bladder 3. Intermittent left bundle branch block, PVCs, improved Plan: Levofloxacin has been discontinued in favor of ceftriaxone. Await culture and sensitivity results. Once sensitivity data is available, recommend transitioning to oral antibiotics. Avoid QT prolonging agents such as fluoroquinolone antibiotics given his chronic sotalol therapy. Zofran has also been discontinued given sotalol use. This can be used on an as- needed basis if deemed necessary. DVT prophylaxis: Patient is anticoagulated with Coumadin for stroke prophylaxis. INR has trended down to 1.8 today, but I anticipate this will go up with antibiotic and menstruation continue home Coumadin dose. -Dr. Antoine is assuming rounding for our team on 03/02/17. Please call with questions or concerns as we will sign off at this point. The patient's primary medical office scheduler is Dr. Jeter. Sánchez Rabago, DO, FACC, FACOI Associate Industrial Sales Engineer [facility], [facility] Laboratory Results Last 24 Hours Test 02/28/17 12:07 03/01/17 05:28 Total Creatine Kinase 88 U/L Creatine Kinase MB 1.5 ng/ml Creatine Kinase MB Ratio 1.7 Troponin I < 0.015 ng/ml White Blood Count 10.46 K/uL Red Blood Count 4.30 M/uL Hemoglobin 14.1 g/dL Hematocrit 40.5 % Mean Corpuscular Volume 94.2 fL Mean Corpuscular Hemoglobin 32.8 pg Mean Corpuscular Hemoglobin Concent 34.8 g/dl RDW Standard Deviation 49.2 fL RDW Coefficient of Variation 14.2 % Platelet Count 253 K/uL Mean Platelet Volume 9.6 fL Prothrombin Time 19.9 SECONDS Prothromb Time International Ratio 1.8 Sodium Level 144 mmol/L Potassium Level 4.2 mmol/L Chloride Level 109 mmol/L Carbon Dioxide Level 28 mmol/L Anion Gap 7.0 mmol/L Blood Urea Nitrogen 16 mg/dl Creatinine 1.00 mg/dl Est Creatinine Clear Calc Drug Dose 57.2 ml/min Estimated GFR () 81.4 Estimated GFR (Non- 70.3 BUN/Creatinine Ratio 15.9 Random Glucose 90 mg/dl Calcium Level 8.5 mg/dl
--- NOTE | 2017-03-01 13:48 | Progress Note ---
Internal Med Progress Note Date of Service: Mar 01, 2017. Provider Documentation: SUBJECTIVE: Seen and examined at bedside. States feeling well. Lightheadedness, weakness improved. Denies chest pain, SOB, abd pain. Family at bedside. OBJECTIVE: Vital Signs-as noted below Physical Exam: General Appearance:Moderately built and nourished, no apparent distress Head: normocephalic, Atraumatic Eyes: normal inspection, EOMI, PERRL Neck: supple, Trachea midline Respiratory/Chest: Normal breath sounds, CTA Cardiovascular: S1, S2, + systolic murmur Abdomen/GI:Soft, Non tender, Bowel sounds present : +Suprapubic catheter Extremities/Musculoskelatal:normal inspection, no edema Neurologic/Psych:AAOX3, grossly no focal neurological deficits Skin: normal color, warm Lab data as noted below. ASSESSMENT & PLAN: Lightheadedness/Weakness Possible related to UTI Received Levaquin in the ER Avoid QT prolonging meds Improved UTI chronic suprapubic catheter due to neurogenic bladder Continue ceftriaxone Urine culture:gram negative bacilli LBBB Asymptomatic All 3 sets Cardiac Markers negative Appreciate Cardiology input. signed off Continue Coumadin HTN Continue home med Stable Atrial fibrillation rate is controlled continue coumadin and Sotalol. Monitor INR:1.8 today DVT px on coumadin CODE STATUS: Full Code Vital Signs: Date Time Temp Pulse Resp B/P (MAP) Pulse Ox O2 Delivery O2 Flow Rate FiO2 03/01/17 12:00 96 Room Air 03/01/17 11:30 36.6 58 18 110/68 (82) 96 03/01/17 08:20 36.4 65 18 113/60 (77) 91 03/01/17 08:00 91 Room Air 03/01/17 04:08 36.4 64 20 108/69 (82) 94 Room Air 03/01/17 04:00 Room Air 03/01/17 00:00 Room Air 02/28/17 23:44 36.8 64 20 110/65 (80) 93 Room Air 02/28/17 20:00 Room Air 02/28/17 19:41 36.7 67 18 102/62 (75) 93 Room Air 02/28/17 16:04 36.7 64 18 113/72 (86) 95 Room Air 02/28/17 16:00 Room Air Lab Results: Results Past 24 Hours Test 03/01/17 05:28 Range/Units White Blood Count 10.46 4.8-10.8 K/uL Red Blood Count 4.30 4.7-6.1 M/uL Hemoglobin 14.1 14.0-18.0 g/dL Hematocrit 40.5 42-52 % Mean Corpuscular Volume 94.2 80-100 fL Mean Corpuscular Hemoglobin 32.8 25-34 pg Mean Corpuscular Hemoglobin Concent 34.8 32-36 g/dl RDW Standard Deviation 49.2 36.4-46.3 fL RDW Coefficient of Variation 14.2 11.5-14.5 % Platelet Count 253 130-400 K/uL Mean Platelet Volume 9.6 7.4-10.4 fL Prothrombin Time 19.9 9.0-12.0 SECONDS Prothromb Time International Ratio 1.8 0.9-1.1 Sodium Level 144 136-145 mmol/L Potassium Level 4.2 3.5-5.1 mmol/L Chloride Level 109 98-107 mmol/L Carbon Dioxide Level 28 21-32 mmol/L Anion Gap 7.0 3-11 mmol/L Blood Urea Nitrogen 16 7-18 mg/dl Creatinine 1.00 0.60-1.40 mg/dl Est Creatinine Clear Calc Drug Dose 57.2 ml/min Estimated GFR () 81.4 Estimated GFR (Non- 70.3 BUN/Creatinine Ratio 15.9 10-20 Random Glucose 90 70-99 mg/dl Calcium Level 8.5 8.5-10.1 mg/dl
[2017-03-01] MEDS ORDERED: WARFARIN SOD 2.5 MG TAB PO SCH (16:00)
[2017-03-01] MEDS: CEFTRIAXONE SOD INJ 1 GM in DEXTROSE 5% ADD-VANTAGE 50ML 50 ML IV SCH (16:11)
[2017-03-02 00:05] VITALS: BP 111/75; PULSE 63; TEMP 36.7; O2SAT 94
[2017-03-02 04:21] VITALS: BP 108/61; PULSE 65; TEMP 36.4; O2SAT 93
[2017-03-02 07:17] VITALS: BP 116/74; PULSE 63; TEMP 36.4; O2SAT 95
[2017-03-02 07:38] LABS: BASO % 0.4 %; BASO ABS # 0.04 K/uL (0-0.2); COMPLETE YES; EOS % 2.4 %; HEMATOCRIT 43.5 % (42-52); IG% 0.4 %; LYMPH % 35.7 %; LYMPH ABS # 3.65 K/uL (1.2-3.4); MEAN CELL VOLUME 93.5 fL (80-100); MEAN CORPUSCULAR HGB CONC 33.1 g/dl (32-36); MEAN PLATELET VOLUME 9.8 fL (7.4-10.4); MONO % 9.7 %; NEUT % 51.4 %; PLATELET COUNT 346 K/uL (130-400); RED BLOOD COUNT 4.65 M/uL (4.7-6.1); WHITE BLOOD COUNT 10.22 K/uL (4.8-10.8)
[2017-03-02 07:56] LABS: INR 1.7 (0.9-1.1); PROTHROMBIN TIME (PATIENT) 18.4 SECONDS (9.0-12.0)
[2017-03-02] MEDS: LISINOPRIL 5 MG TAB PO SCH (08:06)
[2017-03-02] MEDS: SOTALOL HCL 80 MG TAB PO SCH (08:06)
[2017-03-02 08:13] LABS: BUN/CREATININE RATIO 16.8 (10-20); CALCIUM 9.1 mg/dl (8.5-10.1); POTASSIUM 3.7 mmol/L (3.5-5.1)
--- NOTE | 2017-03-02 08:38 | Progress Note ---
Internal Med Progress Note Date of Service: Mar 02, 2017. Provider Documentation: SUBJECTIVE: Seen and examined at bedside. States Lightheadedness, weakness resolved. Denies chest pain, SOB, abd pain. Offers no complaints "I feel I am ready to go home" OBJECTIVE: Vital Signs-as noted below Physical Exam: General Appearance:Moderately built and nourished, no apparent distress Head: normocephalic, Atraumatic Eyes: normal inspection, EOMI, PERRL Neck: supple, Trachea midline Respiratory/Chest: Normal breath sounds, CTA Cardiovascular: S1, S2, + systolic murmur Abdomen/GI:Soft, Non tender, Bowel sounds present : +Suprapubic catheter Extremities/Musculoskelatal:normal inspection, no edema Neurologic/Psych:AAOX3, grossly no focal neurological deficits Skin: normal color, warm Lab data as noted below. ASSESSMENT & PLAN: Lightheadedness/Weakness Possible related to UTI Received Levaquin in the ER Avoid QT prolonging meds Resolved UTI chronic suprapubic catheter due to neurogenic bladder Continue ceftriaxone Urine culture:Klebsiella Oxytoca Will switch to PO Ceftin upon DC Avoid QT prolonging medications as already on Sotolol LBBB Asymptomatic All 3 sets Cardiac Markers negative Appreciate Cardiology input. signed off Continue Coumadin HTN Continue home med Stable Atrial fibrillation rate is controlled continue Coumadin and Sotalol. Monitor INR:1.7 today DVT px on coumadin CODE STATUS: Full Code Disposition: Plan to discharge home today Follow up with on March 07 at 12:05 PM Complete the antibiotic course as prescribed Seek immediate medical attention if your symptoms reoccur or worsen Vital Signs: Date Time Temp Pulse Resp B/P (MAP) Pulse Ox O2 Delivery O2 Flow Rate FiO2 03/02/17 07:37 Room Air 03/02/17 07:17 36.4 63 17 116/74 (88) 95 03/02/17 04:21 36.4 65 18 108/61 (77) 93 Room Air 03/02/17 04:00 Room Air 03/02/17 00:05 36.7 63 20 111/75 (87) 94 Room Air 03/02/17 00:00 Room Air 03/01/17 20:00 95 Room Air 03/01/17 19:21 36.4 71 18 111/68 (82) 95 Room Air 7/14/17 16:00 93 Room Air 03/01/17 14:59 36.8 63 18 109/62 (78) 93 03/01/17 12:00 96 Room Air 03/01/17 11:30 36.6 58 18 110/68 (82) 96 Lab Results: Results Past 24 Hours Test 03/02/17 07:01 Range/Units White Blood Count 10.22 4.8-10.8 K/uL Red Blood Count 4.65 4.7-6.1 M/uL Hemoglobin 14.4 14.0-18.0 g/dL Hematocrit 43.5 42-52 % Mean Corpuscular Volume 93.5 80-100 fL Mean Corpuscular Hemoglobin 31.0 25-34 pg Mean Corpuscular Hemoglobin Concent 33.1 32-36 g/dl Platelet Count 346 130-400 K/uL Mean Platelet Volume 9.8 7.4-10.4 fL Neutrophils (%) (Auto) 51.4 % Lymphocytes (%) (Auto) 35.7 % Monocytes (%) (Auto) 9.7 % Eosinophils (%) (Auto) 2.4 % Basophils (%) (Auto) 0.4 % Neutrophils # (Auto) 5.25 1.4-6.5 K/uL Lymphocytes # (Auto) 3.65 1.2-3.4 K/uL Monocytes # (Auto) 0.99 0.11-0.59 K/uL Eosinophils # (Auto) 0.25 0-0.5 K/uL Basophils # (Auto) 0.04 0-0.2 K/uL RDW Standard Deviation 48.0 36.4-46.3 fL RDW Coefficient of Variation 14.1 11.5-14.5 % Immature Granulocyte % (Auto) 0.4 % Immature Granulocyte # (Auto) 0.04 0.00-0.02 K/uL Prothrombin Time 18.4 9.0-12.0 SECONDS Prothromb Time International Ratio 1.7 0.9-1.1 Sodium Level 140 136-145 mmol/L Potassium Level 3.7 3.5-5.1 mmol/L Chloride Level 106 98-107 mmol/L Carbon Dioxide Level 28 21-32 mmol/L Anion Gap 6.0 3-11 mmol/L Blood Urea Nitrogen 17 7-18 mg/dl Creatinine 1.00 0.60-1.40 mg/dl Est Creatinine Clear Calc Drug Dose 56.5 ml/min Estimated GFR () 81.4 Estimated GFR (Non- 70.3 BUN/Creatinine Ratio 16.8 10-20 Random Glucose 102 70-99 mg/dl Calcium Level 9.1 8.5-10.1 mg/dl
[2017-03-02] MEDS ORDERED: CFT250 PO (08:47)
[2017-03-02 08:49] VITALS: BP 116/74; PULSE 63; TEMP 36.4; O2SAT 95
--- NOTE | 2017-03-02 08:49 | Discharge Summary ---
Discharge Summary Date of Service Mar 02, 2017. Discharge Summary Admission Date: Feb 28, 2017 at 02:28 Discharge Date: Mar 02, 2017 Discharge Disposition: Home Principal Diagnosis: UTI Procedures: CXR: :Negative chest. ECHO: * Sinus rhythm was present at the time of the echocardiogram study. * The left ventricular cavity is small. * The left ventricular wall motion is normal. * The LV Ejection Fraction = 60-65%. * The right ventricle is moderately dilated. * The right ventricular systolic function is normal as assessed by tricuspid annular plane systolic excursion (TAPSE) (normal >1.5 cm). * The right atrium is moderately dilated. * Significant tricuspid regurgitation is absent. * Doppler findings do not suggest pulmonary hypertension. Consultations: Cardiology Pending Studies/Follow-Up: Follow up with on March 07 at 12:05 PM Complete the antibiotic course as prescribed Seek immediate medical attention if your symptoms reoccur or worsen Medication Reconciliation New Medications: Cefuroxime Axetil (Cefuroxime Axetil) 250 Mg Tab 250 MG PO BID for 7 Days, #14 Continued Medications: Lisinopril (Zestril) 5 Mg Tab 5 MG PO BID, TAB Sotalol HCl (Sotalol HCl) 80 Mg Tab 40 MG PO BID TAKE 1/2 TABLET TWICE DAILY. Warfarin Sodium (Warfarin Sodium) 2.5 Mg Tab 2.5 MG PO 5XWK TAKE 2.5 MG EVERY SATURDAY/SATURDAY/SATURDAY/SATURDAY/SATURDAY. Warfarin Sodium (Warfarin Sodium) 2.5 Mg Tab 1.25 MG PO 2XWK TAKE HALF A TABLET (1.25 MG) EVERY SATURDAY/SATURDAY. Admission Information HPI (per Admitting provider): 81 yo M with h/o neurogenic bladder and suprapubic catheter presents to the ER after a spell of rapid heart beat at home while walking in the heat outside after dinner. He came into the house and developed chills and sweats and just didn't feel well. Weakness was also present and although he never lost consciousness, the patient's noted he wasn't looking well. He had some sausage sandwiches for dinner and thought this may be causing him trouble, however, he denies any heartburn, abdominal pain or chest pain. He denies any SOB. He is therapeutic on coumadin and takes sotalol for atrial fibrillation s/ p DCCV. He has a suprapubic bladder catheter in place and workup revealed presence of bacteria. However, the patient denies any pelvic pain or discomfort and has no dysuria, flank pain, urinary urgency or other concern for UTI. In the ER, an EKG revealed a new LBBB and trop was negative. He was given some IVF and Levaquin in the ER and reports that he has no further symptoms at this time and feels great. Physical Exam (per Admitting): GEN: WNWD, in no acute distress, alert and appropriate HEENT: NC/AT, PERRL, normal sclerae, MMM CARDIO: reg rate, S1/2 heard without m/g/r LUNGS: CTA bilaterally, no crackles, rales or wheezes, good diaphragmatic excursion ABD: soft, non-tender, non-distended, no rebound or guarding, suprapubic catheter in place, no erythema around entry site and no drainage. EXTREMITY: RP and DP palpable 2+ bilat, no LE swelling or edema, extremities are warm and well-perfused NEURO: CN 2-12 grossly intact, sensation intact throughout MUSC: 5/5 strength throughout, no gross focal deficits SKIN: warm and dry Hospital Course Lightheadedness/Weakness Possible related to UTI Received Levaquin in the ER Avoid QT prolonging meds Resolved UTI chronic suprapubic catheter due to neurogenic bladder Continue ceftriaxone Urine culture:Klebsiella Oxytoca Will switch to PO Ceftin upon DC Avoid QT prolonging medications as already on Sotolol LBBB Asymptomatic All 3 sets Cardiac Markers negative Appreciate Cardiology input. signed off Continue Coumadin HTN Continue home med Stable Atrial fibrillation rate is controlled continue Coumadin and Sotalol. Monitor INR:1.7 today DVT px on coumadin CODE STATUS: Full Code Disposition: Plan to discharge home today Follow up with on March 07 at 12:05 PM Complete the antibiotic course as prescribed Seek immediate medical attention if your symptoms reoccur or worsen Total time spent on discharge = 34 minutes This includes examination of the patient, discharge planning, medication reconciliation, and communication with other providers. Discharge Instructions Discharge Instructions Date of Service Mar 02, 2017. Admission Reason for Admission: Lightheadedness Discharge Discharge Diagnosis / Problem: UTI Discharge Goals Goal(s): Decrease discomfort, Improve function Activity Recommendations Activity Limitations: resume your previous activity Exercise/Sports Limitations: as tolerated . Instructions / Follow-Up Instructions / Follow-Up Follow up with on March 07 at 12:05 PM Complete the antibiotic course as prescribed Seek immediate medical attention if your symptoms reoccur or worsen Current Hospital Diet Patient's current hospital diet: AHA Diet (Heart Healthy) Discharge Diet Recommended Diet: AHA Diet (Heart Healthy) Pending Studies Studies pending at discharge: no Medical Emergencies . Who to Call and When: Medical Emergencies: If at any time you feel your situation is an emergency, please call 911 immediately. . Non-Emergent Contact Non-Emergency issues call your: Primary Care Provider Call Non-Emergent contact if: you have a fever, your pain is unusual for you, you have any medication questions . . "Provider Documentation" section prepared by Javier Jenkins. . VTE Core Measure Inpt VTE Proph given/why not?: Warfarin (Coumadin)
== END 2017-03-02 09:50 | disposition home or self-care (01) ==
LOC: C.EDB 23:18 → C.MED 02-28 02:28 → CANRESERV 02-28 02:42 → ENRESERV 02-28 02:42
PROVIDERS: ADMIT Hospitalist; ATTEND Internal Medicine
DX: N39.0 Urinary tract infection, site not specified (principal); I48.91 Unspecified atrial fibrillation; I10 Essential (primary) hypertension; N40.0 Benign prostatic hyperplasia without lower urinary tract symptoms; Z86.73 Personal history of transient ischemic attack (TIA), and cerebral infarction without residual deficits; I44.7 Left bundle-branch block, unspecified; N31.9 Neuromuscular dysfunction of bladder, unspecified; Z79.01 Long term (current) use of anticoagulants; Z79.899 Other long term (current) drug therapy; Z87.891 Personal history of nicotine dependence